=== PATIENT | female | born 2000 | race American Indian/Alaskan Native ===

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

== ENCOUNTER 2022-06-23 17:06 | Emergency (ER) | payer BC, MEDICAID ==
[2022-06-23 18:23] VITALS: BP 129/78
== END 2022-06-24 04:32 | disposition left against medical advice (07) ==
LOC: ED 17:06
DX: T14.8XXA Other injury of unspecified body region, initial encounter (principal); T63.301A Toxic effect of unspecified spider venom, accidental (unintentional), initial encounter; Z53.21 Procedure and treatment not carried out due to patient leaving prior to being seen by health care provider; Y92.89 Other specified places as the place of occurrence of the external cause